=== PATIENT | male | born 1995 | race Caucasian/White ===

== ENCOUNTER 2025-08-23 15:41 | Emergency (ER) | payer OTHER, SELFPAY ==
[2025-08-23 15:53] VITALS: BP 151/82
--- NOTE | 2025-08-23 16:24 | ED.GENMED ---
History of Present Illness
General
Chief Complaint: Abdominal Symptoms
Source: patient
Exam Limitations: none
Time Seen by Provider: 08/23/25 16:06
Nursing documentation reviewed up to this point in time: agreed with
History of Present Illness
History of Present Illness:
see MDM
Past History
Past History
ED Past Medical History: Other (GERD/gastritis)
ED Past Surgical History: Appendectomy
Social History
Tobacco: Non-smoker
Alcohol: None
Drug: None
Personal: Single
Living: with family
Employment: Student
Review of Systems
Review of Systems
Allergies reviewed?: Yes
All Other Systems: Not applicable
Phy Exam
Physical Exam
Physical Exam:
GENERAL: Alert , in no apparent distress
EYE: pupils equal and reactive
NECK: Supple
ENT: o/p clr, mmm.
CARDIAC: Regular rate and rhythm .
LUNGS: Clear breath sounds bilaterally, no acute respiratory distress, no wheezes/rales/rhonchi
ABDOMEN: Soft, normal bowel sounds, nondistended without focal tenderness, no r/g, no cvat, normal bowel sounds
NEUROLOGICAL: Alert and oriented, no focal neuro deficits
SKIN: Warm and dry, skin intact.
MUSCULOSKELETAL: No edema, well perfused. neg latesha's sign
PSYCH: Normal and appropriate interaction.
Course
Orders/Labs/Results
Orders:
Orders
08/23/25 16:18
0.9% Sodium Chloride 1000 ml [Nss] 1,000 ml IV BOLUS
Ondansetron Injectable [Zofran] 4 mg IV NOW STA
Pantoprazole [Protonix IV] 40 mg IV NOW STA
08/23/25 16:35
Complete Blood Count/With Diff Urgent
Comprehensive Metabolic Panel Urgent
Lipase Urgent
08/23/25 18:00
Iohexol [Omnipaque] See Protocol PO NOW STA
08/23/25 18:12
CT Abd/Pel (IV only)-DH only Urgent
Comment:
Reason For Exam: abd pain, fever, nausea
08/23/25 19:06
Ketorolac [Toradol] 30 mg IV NOW STA
08/23/25 19:21
Dicyclomine [Bentyl] 20 mg PO NOW STA
Abnormal Lab Results
08/23/25
16:35
Lymphocytes % 15.9 L %
(20.5-51.1)
Glucose 111 H mg/dl
(70-99)
Total Protein 8.5 H g/dl
(6.3-8.2)
Albumin 5.2 H g/dl
(3.5-5.0)
08/23/25 16:35
08/23/25 16:35
Vital Signs
Initial and Last Documented VS:
Initial Vital Signs
Temp Pulse Resp BP Pulse Ox
36.9 C 108 18 151/82 98
08/23/25 15:53 08/23/25 15:53 08/23/25 15:53 08/23/25 15:53 08/23/25 15:53
Last Documented Vital Signs
Temp Pulse Resp BP Pulse Ox
37.7 C 109 16 131/72 98
08/23/25 17:47 08/23/25 17:47 08/23/25 17:47 08/23/25 17:47 08/23/25 17:47
MDM/Problems Addressed
Differential Diagnosis Includes:
see MDM
MDM/Problems Addressed:
Note:
CHIEF COMPLAINT(S)
Nausea and diarrhea after eating lunch.
HISTORY OF PRESENT ILLNESS
The patient, 30 y/o male, presents with nausea and diarrhea after consuming lunch around noon. The meal included pancakes from a restaurant, after which the patient reported feeling immediate nausea, describing the sensation as though 'nothing was
going down all the way.' Alongside nausea, the patient experienced a sense of discomfort with a heat-like sensation in the stomach. The patient has had three to four episodes of diarrhea between eating and presenting for care. There is no vomiting,
but the patient reports chills without a confirmed fever.
The patient mentioned a history of gastrointestinal issues, having undergone an endoscopy in recent months, which revealed concentric circles in the esophagus and polyps, though eosinophilic esophagitis was ruled out. The patient is scheduled for a
follow-up in September. on nexium,
The patients current symptomatology is noted to be different from previous gastrointestinal symptoms, which were typically manageable nausea without pain. No blood is present in the stool, but watery consistency is noted.
pt sys that he doesn't tolerate being nauseated well, he gets very anxious about vomiting.
he has rx for zofran which he took at home
he has not yet vomited
he cannot tell if his discomfort in his abdomen is from nausea or pain
PAST MEDICAL AND SURGICAL HISTORY
- Endoscopy in 2013 and recent endoscopy not revealing eosinophilic esophagitis.
- History of abdominal surgery: appendectomy.
CHRONIC MEDICAL CONDITIONS SIGNIFICANTLY AFFECTING CARE
- Gastroesophageal conditions previously evaluated with endoscopy.
ALLERGIES
- Codeine.
- Possibly Pepcid, as suggested by patient comment on medication.
MEDICATIONS
- Ondansetron for nausea.
- Synthroid.
- Augmentin for a sinus infection from one week ago.
PHYSICAL EXAM
GENERAL: Alert , in no apparent distress
EYE: pupils equal and reactive
NECK: Supple
ENT: o/p clr, dry mouth.
CARDIAC: Regular rate and rhythm .
LUNGS: Clear breath sounds bilaterally, no acute respiratory distress, no wheezes/rales/rhonchi
ABDOMEN: Soft, without focal tenderness, no r/g, no cvat, normal bowel sounds
NEUROLOGICAL: Alert and oriented, no focal neuro deficits
SKIN: Warm and dry, skin intact.
MUSCULOSKELETAL: No edema, well perfused. neg latesha's sign
PSYCH: Normal and appropriate interaction.
- No significant findings detailed in the transcript.
PROBLEM LIST
Acute:
- Nausea and diarrhea following meal ingestion.
PLAN
- Perform laboratory tests.
- Administer intravenous fluids.
- Consider providing a proton pump inhibitor like pantoprazole.
- Address pain and nausea as necessary, potentially with a second dose of ondansetron.
DIFFERENTIAL DIAGNOSIS
The Differential Diagnosis includes, in no particular order and is not limited to:
1. Gastroenteritis.
2. Food poisoning.
3. Peptic ulcer disease.
4. Irritable bowel syndrome.
5. Esophagitis (excluding eosinophilic esophagitis based on recent findings).
6. Gastritis.
7. Drug-induced gastrointestinal reaction.
8. Stress-induced gastrointestinal symptoms.
9. Viral gastroenteritis.
10. Bacterial gastroenteritis.
CARE-UPDATE
08/23/25 - 17:58
Patient reports increased pain in the center of the abdomen, now worse than before, accompanied by chills and a racing heart. Current temperature is 99�F. Blood work appears normal, but due to the reported symptoms of pain, nausea, and fever, there
is a concern of potential peritonitis, albeit unlikely, with a viral stomach bug being a more probable cause. The patient has been advised to refrain from consuming additional ice chips.
CARE-UPDATE
08/23/25 - 19:10
The patients condition is likely due to a viral infection affecting the gastrointestinal tract, with inflammation observed in the stomach and small bowel. There is no evidence of appendicitis. The patient is experiencing nausea and pain and has been
given Zofran for nausea, but not yet any medication for pain. Toradol has been ordered for pain management, and the patient is permitted to drink small amounts of fluids, such as bethany pura, to assess tolerance. The patient has a history of a sore
throat but has tested negative for the flu, and a recent COVID-19 exposure was noted, as indicated by the patients wifes negative flu test. The physician advised against any sedative medications because the patient drove themselves to the
appointment. Monitoring for 24-48 hours is recommended as symptoms may persist for that duration.
CARE-UPDATE
08/23/25 - 19:54
Patient reports feeling fine while seated but experiences returning abdominal pain upon movement, which may be contributing to nausea. Recent belching accompanied by a bitter taste suggests some digestive disturbance.
pt was ble to tolerate his po fluids here without vomiting.
reviewed ct findings of possible ileus with patient; though most likely enteritis.
Advised that if symptoms including worsening pain or recurrent vomiting escalate, they should return for further evaluation to prevent potential bowel obstruction. Instructed to rest, avoid food and drink if not desired, and consider using on-hand
medication, docusate, every six hours as required for symptom relief.
*Pulse Oximetry
SaO2: 98
Oxygen Mode of Delivery: Room air
Patient hypoxic: no (98)
*Critical Care Note
Total Time (30-74mins, 75-104mins- exclusive of procedures): Not Applicable
ED Attending Note
-
Portions of this chart may have been created with voice recognition software.� Occasional wrong word or��sound alike� substitutions may have occurred due to the inherent limitations of voice recognition software.
Discharge Plan
Departure
Patient Disposition: Home (Routine Discharge)
Date of Disposition: 08/23/25
Time of Disposition: 20:05
Patient with high blood pressure during this ER visit?: No
Condition: Fair
Covid-19: Not Applicable
Discharge Problem:
Enteritis
Instructions: Nausea and vomiting in adults - ED (DC)
Prescriptions:
No Action
multivitamin [Daily Multiple] 1 EACH tablet
1 ea PO DAILY
ondansetron HCl [Zofran] 4 MG tablet
4 mg PO TID
ciprofloxacin HCl 500 MG tablet
500 mg PO BID
Referrals:
Pam Mercer DO [Family Provider, Family Practice] - Follow up in 2-3 days
Activity Restrictions/Additional Instructions:
Your symptoms are probably viral. You have findings associated with some inflammation of your small bowel and a little bit of distention of the loops of your small bowel and colon that could represent a viral infection or even maybe a mild ileus
which is where your bowel gas pauses
Usually this is self-limiting and will resolve. If you start vomiting or having worsening pain or cannot pass stool or have any passing of gas then you need to return to the emergency department. Stay hydrated. You can use your Zofran every 4-6
hours as needed for nausea and vomiting. You can take Tylenol for pain. You can use a warm heating compress on your abdomen. Definitely have a bland diet, clear liquids for tonight, broth etc. and then advance as tolerated. Return for any
concerns
Interventions
Interventions:
*Risk Screen - Suicide Last Done: 08/23/25 15:53
*General Assessment Last Done: 08/23/25 15:53
*Neglect/Abuse Screening Last Done: 08/23/25 15:53
[facility] Risk Assessment Tool Last Done: 08/23/25 16:40
LM-[id number]-Iiaqppbcib Assessment Last Done: 08/23/25 16:40
Discharge Date and Time
Print Language: TOGOLESE
[2025-08-23] MEDS: ZOFRAN 4 MG IV (16:35)
[2025-08-23] MEDS: NSS 1000 IV (16:37)
[2025-08-23] MEDS: PROTONIX IV 40 MG IV (16:37)
[2025-08-23 16:56] LABS: Hematocrit 47.9 % (39.0-52.0); Hemoglobin 15.9 g/dL (13.0-18.0); Mean Corp Hgb Conc. 33.2 g/dL (33.0-37.0); Mean Corpuscular Volume 84.3 fL (80.0-94.0); Nucleated Red Blood Cells % 0 % (-); Platelet Count 294 10^3/uL (130-400); Red Cell Dist. Width 12.1 % (11.5-14.5)
[2025-08-23 17:08] LABS: ALT (SGPT) 25 U/L (0-50); AST (SGOT) 27 U/L (17-59); Albumin 5.2 g/dl (3.5-5.0); Alkaline Phosphatase 56 U/L (38-126); Blood Urea Nitrogen 13 mg/dl (9-20); Calcium 9.9 mg/dl (8.4-10.2); Carbon Dioxide 30 mmol/L (22-30); Chloride 104 mmol/L (98-107); Glucose 111 mg/dl (70-99); Lipase 175 U/L (23-300); Potassium 4.3 mmol/L (3.5-5.1); Sodium 142 mmol/L (135-145); Total Protein 8.5 g/dl (6.3-8.2); eGFR > 60.00
[2025-08-23 17:47] VITALS: BP 131/72
[2025-08-23] MEDS: BENTYL 20 MG PO (19:24)
[2025-08-23] MEDS: REGLAN 10 MG PO (20:23)
== END 2025-08-23 20:34 | disposition home or self-care (01) ==
LOC: EMR 15:41
PROVIDERS: Physician Assistant; EMERGENCY PHYSICIAN Emergency Medicine; FAMILY PHYSICIAN Student in an Organized Health Care Education/Training Program
DX: K52.9 Noninfective gastroenteritis and colitis, unspecified (principal); R11.0 Nausea; Z90.49 Acquired absence of other specified parts of digestive tract; Z88.5 Allergy status to narcotic agent
CPT/HCPCS: 96374; 96375; 96361; 99284; 74177; 80053; 83690; 85025; Q9967